=== PATIENT | female | born 1930 | race Caucasian/White ===

== ENCOUNTER 2019-02-20 09:53 | Observation (INO) ==
[2019-02-20] MEDS ORDERED: Isovue-370 500 ML BOTTLE IVP ONE (10:20)
--- NOTE | 2019-02-20 10:21 | Emergency Department Note ---
Disposition Clinical Impression: Hypoglycemia, Pain in pacemaker pocket Disposition: Admitted As Inpatient Condition: Good Referrals: John Powell DO [Primary Care Provider] - Forms: ED Satisfaction Letter, Work/School Release Time of Disposition: 14:27 General Adult HPI - General Chief complaint: ED General Medical Stated complaint: Concern for Infection S/P Defib Implant Time Seen by Provider: 02/20/19 10:05 Source: patient Limitations: no limitations Nursing Notes Reviewed: Yes Vital Signs Reviewed: Yes - History of Present Illness HPI Narrative: A social female was us emergency department with concern for swelling, and warmth over her pacemaker defibrillator incision site. Patient states that she had a defibrillator and pacemaker placement one week ago by Dr. Yin. States that she was seen by a nurse at his office and sent to the emergency department. Patient denies any fevers, but reports that the swelling of the area has been increasing over the last couple days. States that it has been want to fill, no drainage has been from the area. Patient states that she has been keeping the area dry and has been following all of her instructions otherwise. Pain Scale: 5 - Related Data Home Medications Medication Instructions Recorded Confirmed Aspirin [Lo-Dose Aspirin EC] 81 mg PO DAILY 02/10/19 02/10/19 Carvedilol [Coreg] 6.25 mg PO BIDWM 02/10/19 02/10/19 Clopidogrel [Plavix] 75 mg PO DAILY 02/10/19 02/10/19 Digoxin [Lanoxin] 0.125 mg PO DAILY 02/10/19 02/10/19 Furosemide [Lasix] 0.5 tab PO DAILY 02/10/19 02/10/19 Gabapentin [Neurontin] 400 mg PO BID 02/10/19 02/10/19 Insulin Lispro Protamin/Lispro 45 unit SQ QPM 02/10/19 02/10/19 [Humalog Mix 75-25 Kwikpen] Insulin Lispro Protamin/Lispro 55 unit SQ QAM 02/10/19 02/10/19 [Humalog Mix 75-25 Kwikpen] Isosorbide MONOnitrate (24 HR) 30 mg PO DAILY 02/10/19 02/10/19 [Imdur] Levothyroxine Sodium [Euthyrox] 100 mcg PO DAILY 02/10/19 02/10/19 Lisinopril [Zestril] 0.5 tab PO DAILY 02/10/19 02/10/19 [place]-3/Dha/Epa/Fish Oil [Fish Oil 1 each PO BID 02/10/19 02/10/19 1,000 mg Softgel] Rosuvastatin Calcium [Crestor] 10 mg PO DAILY 02/10/19 02/10/19 amLODIPine [Norvasc] 5 mg PO DAILY 02/10/19 02/10/19 Allergies Allergy/AdvReac Type Severity Reaction Status Date / Time atorvastatin [From Lipitor] Allergy Swelling Verified 02/20/19 10:03 of Lip/Tongue/Throat Sulfa (Sulfonamide Allergy Hives Verified 02/10/19 13:09 Antibiotics) All systems ED: reviewed and negative except as stated. Review of Systems: As Per HPI Constitutional: Denies: fever Cardiovascular: Denies: chest pain Respiratory: Denies: cough, dyspnea Gastrointestinal: Denies: nausea Integumentary: Reports: other (Swelling of skin) Past Medical History - Past Medical History Attestation: Yes The following information was validated with the patient. Medical history: Reports: cancer, coronary artery disease, diabetes, GERD, hyperlipidemia, hypertension, myocardial infarction, peripheral artery disease Surgical history: Reports: angioplasty/stent, carotid endarterectomy, cholecystectomy, pacemaker/AICD, AICD Psychiatric history: Reports: no psych history - Social History Smoking Status: Former smoker Smokeless Tobacco Status: No Alcohol use: Reports: none Drug use: Reports: none Physical Exam - General Limitations: no limitations General appearance: alert, in no apparent distress - Head Head exam: normocephalic - Eye Eye exam: Present: EOMI - ENT ENT exam: mucous membranes moist - Neck Neck exam: Present: trachea midline - Chest Chest inspection: Present: symmetric chest wall rise, other (Patient has a clean incision site where his regular for replaced. There is some mild swelling around the site, no areas of fluctuation, no drainage from incision, no erythema, Steri-Strips intact) - Respiratory Respiratory exam: Present: normal lung sounds bilaterally. Absent: respiratory distress, accessory muscle use - Cardiovascular Cardiovascular exam: Present: regular rate, normal rhythm, normal heart sounds - Abdominal Exam Abdominal exam: Present: soft, Non-Tender. Absent: distention, guarding, rehana ound - Extremities Exam Extremities exam: Present: normal capillary refill - Back Exam Back exam: Present: full ROM - Neurological Exam Neurological exam: Present: alert, oriented X3 - Psychiatric Psychiatric exam: Present: normal affect, normal mood - Skin Skin exam: Present: warm, dry, intact, normal color Course Vital Signs Temperature 97.9 F 02/20/19 09:56 Pulse Rate 60 02/20/19 09:56 Respiratory Rate 18 02/20/19 09:56 Blood Pressure 138/51 02/20/19 09:56 O2 Sat by Pulse Oximetry 97 02/20/19 09:56 Temperature 97.9 F 02/20/19 09:56 Pulse Rate 59 02/20/19 11:55 Respiratory Rate 18 02/20/19 11:55 Blood Pressure 164/51 02/20/19 11:55 O2 Sat by Pulse Oximetry 95 02/20/19 11:55 Oxygen Delivery Oxygen Delivery Room Air Medical Decision Making - MDM Narrative Medical decision making narrative: Initial female presents emergency department with concern for swelling of where her pacemaker was placed. On physical exam, there is some mild swelling around the site, no drainage, clean incision site. CT skin of the chest in that area reveals small amount of fluid and bubbles of gas along the superior margin of the generator. No signs of abscess, no overt evidence of infection. Blood cultures were obtained. I spoke with candle wicker Dr. Savage who came to see the patient bedside. Requested she get admitted. Said to not start antibiotics at this time. Said to monitor while blood cell count patient clinically. Patient does have increased leukocytosis from previous, however, patient also had previous surgery which could have caused stress emargination. With patient being afebrile now, no evidence of any cellulitis at this time, agree with withholding antibiotics at this time. Patient admitted to Dr. Baltazar. Patient did have mild hypoglycemia with a glucose of 60. She was given oral hydration and started on a diet. Patient asymptomatic with it. Chest CT 02/20/19 10:20 IMPRESSION: 1. Small amount of fluid and bubbles of gas along the superior margin of the pulse generator of an AICD could be postoperative. The the possibility of infection should be correlated clinically. There is no discrete fluid collection suggestive of an abscess 2. No acute intrathoracic abnormality D/ / oJhn Kennedy MD / John Kennedy MD Interpreting Provider: John Kennedy MD - Lab Data Result diagrams: 02/20/19 10:36 02/20/19 10:36 Lab Results 02/20/19 02/20/19 02/20/19 Range/Units 10:36 10:36 10:36 WBC 11.4 H (4.3-11.1) K/mcL RBC 4.43 (3.82-4.97) M/mcL Hgb 12.6 (11.5-15.4) g/dL Hct 40.3 (35.3-44.9) % MCV 91.0 (83.0-100.0) fL MCH 28.4 (28.0-33.3) pg MCHC 31.3 L (31.6-35.5) g/dL RDW 14.6 H (11.5-14.5) % Plt Count 243 (140-400) K/mcL MPV 10.7 (9.4-12.4) fL Immature Gran % 0.4 (0-4) % Seg Neutrophils % 64.4 % Lymphocytes % 25.9 % Monocytes % 8.4 % Eosinophils % 0.5 % Basophils % 0.4 % Neutrophils # 7.3 (1.6-8.9) K/mcL Lymphocytes # 3.0 (0.6-4.6) K/mcL Monocytes # 1.0 (0.0-1.3) K/mcL Eosinophils # 0.1 (0.0-0.6) K/mcL Basophils # 0.0 (0.0-0.2) K/mcL Sodium 144 (136-145) mEq/L Potassium 4.5 (3.5-5.1) mEq/L Chloride 106 (98-107) mEq/L Carbon Dioxide 29 (23-29) mEq/L BUN 34 H (8-23) mg/dL Creatinine 1.43 H (0.60-1.20) mg/dL Est GFR ( Amer) 42 L (> 60) Est GFR (Non-Af Amer) 35 L (> 60) BUN/Creatinine Ratio 24 (6-26) Glucose 60 L (70-105) mg/dL POC Glucose (70-99) mg/dL Calculated Osmolality 303 H (280-300) Lactic Acid 1.2 (0.5-2.2) mmol/L Calcium 9.9 (8.6-10.3) mg/dL 02/20/19 Range/Units 12:14 WBC (4.3-11.1) K/mcL RBC (3.82-4.97) M/mcL Hgb (11.5-15.4) g/dL Hct (35.3-44.9) % MCV (83.0-100.0) fL MCH (28.0-33.3) pg MCHC (31.6-35.5) g/dL RDW (11.5-14.5) % Plt Count (140-400) K/mcL MPV (9.4-12.4) fL Immature Gran % (0-4) % Seg Neutrophils % % Lymphocytes % % Monocytes % % Eosinophils % % Basophils % % Neutrophils # (1.6-8.9) K/mcL Lymphocytes # (0.6-4.6) K/mcL Monocytes # (0.0-1.3) K/mcL Eosinophils # (0.0-0.6) K/mcL Basophils # (0.0-0.2) K/mcL Sodium (136-145) mEq/L Potassium (3.5-5.1) mEq/L Chloride (98-107) mEq/L Carbon Dioxide (23-29) mEq/L BUN (8-23) mg/dL Creatinine (0.60-1.20) mg/dL Est GFR ( Amer) (> 60) Est GFR (Non-Af Amer) (> 60) BUN/Creatinine Ratio (6-26) Glucose (70-105) mg/dL POC Glucose 188 H (70-99) mg/dL Calculated Osmolality (280-300) Lactic Acid (0.5-2.2) mmol/L Calcium (8.6-10.3) mg/dL
[2019-02-20 10:55] LABS: Basophils % 0.4 %; Eosinophils # 0.1 K/mcL (0.0-0.6); Eosinophils % 0.5 %; Hematocrit 40.3 % (35.3-44.9); Hemoglobin 12.6 g/dL (11.5-15.4); Immature Granulocytes % 0.4 % (0-4); Lymphocytes % 25.9 %; Mean Corpuscular HGB Conc 31.3 g/dL (31.6-35.5); Mean Corpuscular Hemoglobin 28.4 pg (28.0-33.3); Mean Platelet Volume 10.7 fL (9.4-12.4); Monocytes % 8.4 %; Neutrophils # 7.3 K/mcL (1.6-8.9); Platelet Count 243 K/mcL (140-400); Red Blood Count 4.43 M/mcL (3.82-4.97); Red Cell Distribution Width 14.6 % (11.5-14.5); Segmented Neutrophils % 64.4 %; White Blood Count 11.4 K/mcL (4.3-11.1)
[2019-02-20 11:02] LABS: Calcium 9.9 mg/dL (8.6-10.3); Potassium 4.5 mEq/L (3.5-5.1)
[2019-02-20] MEDS ORDERED: *HR* Dextrose 50 % in Water (Vial) 50 ML VIAL IVP ONE (11:21)
--- NOTE | 2019-02-20 14:12 | Emergency Department Note ---
Disposition Clinical Impression: Hypoglycemia, Pain in pacemaker pocket Disposition: Admitted As Inpatient Condition: Good Forms: ED Satisfaction Letter, Work/School Release Time of Disposition: 14:12 General Adult HPI - General Chief complaint: ED General Medical Stated complaint: Concern for Infection S/P Defib Implant Time Seen by Provider: 02/20/19 10:05 Source: patient Limitations: no limitations - History of Present Illness Pain Scale: 5 - Related Data Home Medications Medication Instructions Recorded Confirmed Aspirin [Lo-Dose Aspirin EC] 81 mg PO DAILY 02/10/19 02/20/19 Carvedilol [Coreg] 6.25 mg PO BIDWM 02/10/19 02/20/19 Clopidogrel [Plavix] 75 mg PO DAILY 02/10/19 02/20/19 Digoxin [Lanoxin] 0.125 mg PO DAILY 02/10/19 02/20/19 Furosemide [Lasix] 0.5 tab PO DAILY 02/10/19 02/20/19 Gabapentin [Neurontin] 400 mg PO BID 02/10/19 02/20/19 Insulin Lispro Protamin/Lispro 45 unit SQ QPM 02/10/19 02/20/19 [Humalog Mix 75-25 Kwikpen] Insulin Lispro Protamin/Lispro 55 unit SQ QAM 02/10/19 02/20/19 [Humalog Mix 75-25 Kwikpen] Isosorbide MONOnitrate (24 HR) 30 mg PO DAILY 02/10/19 02/20/19 [Imdur] Levothyroxine Sodium [Euthyrox] 100 mcg PO DAILY 02/10/19 02/20/19 Lisinopril [Zestril] 0.5 tab PO DAILY 02/10/19 02/20/19 [place]-3/Dha/Epa/Fish Oil [Fish Oil 1 each PO BID 02/10/19 02/20/19 1,000 mg Softgel] Rosuvastatin Calcium [Crestor] 10 mg PO DAILY 02/10/19 02/20/19 amLODIPine [Norvasc] 5 mg PO DAILY 02/10/19 02/20/19 Allergies Allergy/AdvReac Type Severity Reaction Status Date / Time atorvastatin [From Lipitor] Allergy Swelling Verified 02/20/19 10:03 of Lip/Tongue/Throat Sulfa (Sulfonamide Allergy Hives Verified 02/10/19 13:09 Antibiotics) Past Medical History - Past Medical History Medical history: Reports: cancer, coronary artery disease, diabetes, GERD, hyperlipidemia, hypertension, myocardial infarction, peripheral artery disease Surgical history: Reports: angioplasty/stent, carotid endarterectomy, cholecystectomy, pacemaker/AICD, AICD Psychiatric history: Reports: no psych history - Social History Smoking Status: Former smoker Smokeless Tobacco Status: No Alcohol use: Reports: none Drug use: Reports: none Physical Exam - General Limitations: no limitations General appearance: alert, in no apparent distress Course Vital Signs Temperature 97.9 F 02/20/19 09:56 Pulse Rate 60 02/20/19 09:56 Respiratory Rate 18 02/20/19 09:56 Blood Pressure 138/51 02/20/19 09:56 O2 Sat by Pulse Oximetry 97 02/20/19 09:56 Temperature 97.9 F 02/20/19 09:56 Pulse Rate 59 02/20/19 11:55 Respiratory Rate 18 02/20/19 11:55 Blood Pressure 164/51 02/20/19 11:55 O2 Sat by Pulse Oximetry 95 02/20/19 11:55 Oxygen Delivery Oxygen Delivery Room Air Medical Decision Making - Lab Data Result diagrams: 02/20/19 10:36 02/20/19 10:36 Lab Results 02/20/19 02/20/19 02/20/19 Range/Units 10:36 10:36 10:36 WBC 11.4 H (4.3-11.1) K/mcL RBC 4.43 (3.82-4.97) M/mcL Hgb 12.6 (11.5-15.4) g/dL Hct 40.3 (35.3-44.9) % MCV 91.0 (83.0-100.0) fL MCH 28.4 (28.0-33.3) pg MCHC 31.3 L (31.6-35.5) g/dL RDW 14.6 H (11.5-14.5) % Plt Count 243 (140-400) K/mcL MPV 10.7 (9.4-12.4) fL Immature Gran % 0.4 (0-4) % Seg Neutrophils % 64.4 % Lymphocytes % 25.9 % Monocytes % 8.4 % Eosinophils % 0.5 % Basophils % 0.4 % Neutrophils # 7.3 (1.6-8.9) K/mcL Lymphocytes # 3.0 (0.6-4.6) K/mcL Monocytes # 1.0 (0.0-1.3) K/mcL Eosinophils # 0.1 (0.0-0.6) K/mcL Basophils # 0.0 (0.0-0.2) K/mcL Sodium 144 (136-145) mEq/L Potassium 4.5 (3.5-5.1) mEq/L Chloride 106 (98-107) mEq/L Carbon Dioxide 29 (23-29) mEq/L BUN 34 H (8-23) mg/dL Creatinine 1.43 H (0.60-1.20) mg/dL Est GFR ( Amer) 42 L (> 60) Est GFR (Non-Af Amer) 35 L (> 60) BUN/Creatinine Ratio 24 (6-26) Glucose 60 L (70-105) mg/dL POC Glucose (70-99) mg/dL Calculated Osmolality 303 H (280-300) Lactic Acid 1.2 (0.5-2.2) mmol/L Calcium 9.9 (8.6-10.3) mg/dL 02/20/19 Range/Units 12:14 WBC (4.3-11.1) K/mcL RBC (3.82-4.97) M/mcL Hgb (11.5-15.4) g/dL Hct (35.3-44.9) % MCV (83.0-100.0) fL MCH (28.0-33.3) pg MCHC (31.6-35.5) g/dL RDW (11.5-14.5) % Plt Count (140-400) K/mcL MPV (9.4-12.4) fL Immature Gran % (0-4) % Seg Neutrophils % % Lymphocytes % % Monocytes % % Eosinophils % % Basophils % % Neutrophils # (1.6-8.9) K/mcL Lymphocytes # (0.6-4.6) K/mcL Monocytes # (0.0-1.3) K/mcL Eosinophils # (0.0-0.6) K/mcL Basophils # (0.0-0.2) K/mcL Sodium (136-145) mEq/L Potassium (3.5-5.1) mEq/L Chloride (98-107) mEq/L Carbon Dioxide (23-29) mEq/L BUN (8-23) mg/dL Creatinine (0.60-1.20) mg/dL Est GFR ( Amer) (> 60) Est GFR (Non-Af Amer) (> 60) BUN/Creatinine Ratio (6-26) Glucose (70-105) mg/dL POC Glucose 188 H (70-99) mg/dL Calculated Osmolality (280-300) Lactic Acid (0.5-2.2) mmol/L Calcium (8.6-10.3) mg/dL Attestation Statement - Attestation Attestation: I reviewed the residents documentation and agree with the residents assessment and plan of care. I have personally had face to face time with the patient. (Brief History, Brief Exam, and MDM) I personally supervised and was present for the pereira/critical portions of the following procedures completed by the resident: (add procedures performed here). 88 year old female presents to the ED with complaints of pain over the pacemaker and weakness. It appers that she is hypoglycemic and pacemaker was placed by Dr. Yin about [address] scan shows post-operative gas vs cellultis and she otherwise has an elevaed WBC from 7 to 11. Cards does not require ABX at this time and think that this is likely post-opertaive inflammation. Sherry will have blood culcutres pulled and reccomend admissin to medicine for obs.
[2019-02-20] MEDS ORDERED: Acetaminophen 325 MG TABLET PO PRN (14:41)
[2019-02-20] MEDS ORDERED: Naloxone 0.4 MG/ML INJ IVP PRN (14:41)
[2019-02-20] MEDS ORDERED: Ondansetron 4 MG/2 ML VIAL IVP PRN (14:41)
[2019-02-20] MEDS ORDERED: Dextrose Gel 15 GM/37.5 ML TUBE PO PRN ×2 (14:51)
[2019-02-20] MEDS ORDERED: D5% in Water 1,000 ML IVC PRN (14:51)
[2019-02-20] MEDS ORDERED: *HR* Dextrose 50 % in Water (Syg) 50 ML SYRINGE IVP PRN (14:51)
--- NOTE | 2019-02-20 14:51 | Internal Med History&Physical ---
Date of Encounter: 02/20/19 Time of Encounter: 14:47 Internal Medicine - H&P: HPI Chief complaint: pacemaker pain Admitted From: Emergency Dept Plans for Post Hospital Care: Home History of present illness: Ms. 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 She presented to the ED was noted to be hypoglycemic with glucose in the 60s. Patient states that her blood sugars have been dropping she has not been taking her basal insulin because of hypoglycemia. She also has been experiencing left leg pain which she states occurs on ambulation and at times is just constant describing as an ache she does have peripheral vascular disease. She was seen by cardiology in the ER he recommends no antibiotics at this time blood cultures have been drawn lab work with with slight elevation in white count. She does have history CK D appears to be around baseline. Patient has been admitted for further work up and evaluation. Discussed with Dr. Savage who did see patient in the ER no antibiotics at this time. Discussed treatment plan with the patient who verbalized understanding. Past Med Surg Social Fam HX - Past Medical History Medical history: cancer, coronary artery disease, diabetes, GERD, hyperlipidemia, hypertension, myocardial infarction, peripheral artery disease Psychiatric history: no psych history - Past Surgical History Surgical History: angioplasty/stent, carotid endarterectomy, cholecystectomy, pacemaker/AICD, AICD - Social History Smoking Status: Former smoker Smokeless Tobacco Status: No Alcohol use: none Drug use: none - Family History Mother Living Status: Cause of : Cancer Father Living Status: Cause of : Cancer Internal Medicine - H&P: Meds Aspirin [Lo-Dose Aspirin EC] 81 mg PO DAILY 02/10/19 [History] Carvedilol [Coreg] 6.25 mg PO BIDWM 02/10/19 [History] Clopidogrel [Plavix] 75 mg PO DAILY 02/10/19 [History] Digoxin [Lanoxin] 0.125 mg PO DAILY 02/10/19 [History] Furosemide [Lasix] 0.5 tab PO DAILY 02/10/19 [History] Gabapentin [Neurontin] 400 mg PO BID 02/10/19 [History] Insulin Lispro Protamin/Lispro [Humalog Mix 75-25 Kwikpen] 45 unit SQ QPM 02/10/19 [History] Insulin Lispro Protamin/Lispro [Humalog Mix 75-25 Kwikpen] 55 unit SQ QAM 02/10/19 [History] Isosorbide MONOnitrate (24 HR) [Imdur] 30 mg PO DAILY 02/10/19 [History] Levothyroxine Sodium [Euthyrox] 100 mcg PO DAILY 02/10/19 [History] Lisinopril [Zestril] 0.5 tab PO DAILY 02/10/19 [History] [place]-3/Dha/Epa/Fish Oil [Fish Oil 1,000 mg Softgel] 1 each PO BID 02/10/19 [History] Rosuvastatin Calcium [Crestor] 10 mg PO DAILY 02/10/19 [History] amLODIPine [Norvasc] 5 mg PO DAILY 02/10/19 [History] Allergy/AdvReac Type Severity Reaction Status Date / Time atorvastatin [From Lipitor] Allergy Swelling Verified 02/20/19 10:03 of Lip/Tongue/Throat Sulfa (Sulfonamide Allergy Hives Verified 02/10/19 13:09 Antibiotics) All Systems PM: A 10-system review of systems was performed and is negative for pertinent findings except as documented above in the HPI. - Constitutional Vitals: Temp Pulse Resp BP Pulse Ox 97.9 F 60 18 174/56 98 02/20/19 09:56 02/20/19 14:24 02/20/19 14:24 02/20/19 14:24 02/20/19 14:24 Exam: Skin: Free of rash and discoloration. Eyes: Sclera is white. There is no discharge from eyes. ENMT: Oral/pharyngeal mucosa is normal in appearance. There is no discharge from nose or ears. Respiratory: Normal breath sounds with no crackles and wheezes bilaterally. CV: Heart is regular with no gallop or murmur.-Left chest where pacemaker swollen tender to touch no drainage no redness warm to touch GI: Abdomen is flat and soft with no palpable mass or visceromegaly. : There is no tenderness in patient's flanks bilaterally. Neuro exam: He has good strength in upper and lower extremities. He has normal eye movements. Psychiatric: He has normal affect. His thought process is appropriate to the situation. Internal Med - H&P Results - Labs CBC & Chem 7: 02/20/19 10:36 02/20/19 10:36 Labs: Short CBC 02/20/19 Range/Units 10:36 WBC 11.4 H (4.3-11.1) K/mcL Hgb 12.6 (11.5-15.4) g/dL Hct 40.3 (35.3-44.9) % Plt Count 243 (140-400) K/mcL Neutrophils # 7.3 (1.6-8.9) K/mcL BMP 02/20/19 10:36 Sodium 144 Potassium 4.5 Chloride 106 Carbon Dioxide 29 BUN 34 H Creatinine 1.43 H Glucose 60 L Calcium 9.9 - Impressions ITS Impressions Chest CT 02/20/19 10:20 IMPRESSION: 1. Small amount of fluid and bubbles of gas along the superior margin of the pulse generator of an AICD could be postoperative. The the possibility of infection should be correlated clinically. There is no discrete fluid collection suggestive of an abscess 2. No acute intrathoracic abnormality D/ / John Kennedy MD / John Kennedy MD Interpreting Provider: John Kennedy MD - Assessment and Plan (1) Pain in pacemaker pocket Current Visit: Yes Status: Acute Assessment and plan: Patient had pacemaker placed and 02/10/2019 she has been experiencing pain and swelling to the site tender to touch no fevers no chills no white count Blood cultures have been drawn Cardiology has been consulted-no antibiotics at this time per cardiology's recommendation (2) CAD (coronary artery disease) Current Visit: Yes Status: Acute Assessment and plan: History of CADsp VA 3 PCI-continue with aspirin Plavix I survive lisinopril and carvedilol-no chest pain at this time Continuous cardiac monitoring Qualifiers: Coronary Disease-Associated Artery/Lesion type: [place] artery [place] vs. transplanted heart: [place] heart Associated angina: without angina Qualified Code(s): I25.10 - Atherosclerotic heart disease of [place] coronary artery without angina pectoris (3) HTN (hypertension) Current Visit: Yes Status: Acute Assessment and plan: Continue with home medications- Qualifiers: Hypertension type: essential hypertension Qualified Code(s): I10 - Essential (primary) hypertension (4) Diabetes Current Visit: Yes Status: Acute Assessment and plan: Accu-Cheks before meals at bedtime with sliding scale insulin. Patient did have episode of hypoglycemia we will hold basal for now monitor and resume check A1c Qualifiers: Diabetes mellitus type: type 2 Diabetes mellitus director of the biophysics facility insulin use: with director of the biophysics facility use Diabetes mellitus complication status: with kidney complications Diabetes mellitus complication detail: with chronic kidney disease Chronic kidney disease stage: stage 3 (moderate) Qualified Code(s): E11.22 - Type 2 diabetes mellitus with diabetic chronic kidney disease; N18.3 - Chronic kidney disease, stage 3 (moderate); Z79.4 - clinical orthoptist (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 (5) Hypoglycemia Current Visit: Yes Status: Acute Assessment and plan: Patient did have episode of hypoglycemia in the emergency room. Patient was given oral dextrose and a tray to eat and glucose improved. She has been exp eriencing episodes of hypoglycemia home has not been taking her basal insulin Continue with Accu-Cheks before meals at bedtime with sliding-scale insulin reevaluate upon discharge (6) PVD (peripheral vascular disease) Current Visit: Yes Status: Acute Assessment and plan: History PVD-Quain patient she has stents placed in her right renal artery around 2010. She has been experiencing increasing pain the past few weeks 2. she buys it difficult to walk due to the pain she states pain is constant throbbing from her groin down to her knee Pulses are present bilaterally extremities pink and warm-discussed with vascular who will see patient Arterial studies Impressions: 1) Right lower extremity waveform demonstrates mildly diminished hemodynamics. 2) Right Ankle Brachial Index demonstrates moderately occlusive disease. 1) Left lower extremity waveform demonstrates moderately diminished hemodynamics. 2) Left Ankle Brachial Index demonstrates severely occlusive disease. (7) CKD (chronic kidney disease) stage 3, GFR 30-59 ml/min Current Visit: Yes Status: Acute Assessment and plan: History CKD stage III-crabbing appears to be at baseline-currently 1.43 appears to be around 1.48 Continue to monitor creatinine avoid nephrotoxins Monitor intake and output (8) History of CHF (congestive heart failure) Current Visit: Yes Status: Acute Assessment and plan: History of diastolic heart failure we will continue with Lasix and Coreg Does not appear to be fluid overloaded - Time Spent With Patient Total time spent is greater than 50% in coordination of care (as documented) at patient's floor/unit and/or counseling patient:
[2019-02-20 16:31] LABS: Estimated Average Glucose 166 mg/dl
[2019-02-20] MEDS: Insulin LISPRO 300 UNITS/3 ML VIAL SQ SCH ×2 (17:09→20:39)
--- NOTE | 2019-02-20 18:26 | Vascular/Endovasc Consult Note ---
Date of Encounter: 02/20/19 Time of Encounter: 18:19 Assessment and Plan (1) Pain in pacemaker pocket Current Visit: Yes Status: Acute This issue is being evaluated for possible infection per cardiology. (2) CAD (coronary artery disease) Current Visit: Yes Status: Chronic Patient has chronic coronary artery disease with previous myocardial infarctions and has ischemic cardiomyopathy. The patient tells me she does not want resuscitation in the event of cardiopulmonary arrest which would then obviously make her a DNR status. Qualifiers: Coronary Disease-Associated Artery/Lesion type: [place] artery [place] vs. transplanted heart: [place] heart Associated angina: without angina Qualified Code(s): I25.10 - Atherosclerotic heart disease of [place] coronary artery without angina pectoris (3) Diabetes Current Visit: Yes Status: Chronic Patient has long-term diabetes. 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 She is status post a right lower extremity intervention and 2 left lower extremity interventions. She is status post a left carotid stent angioplasty. Due to the patient's profound cardiopulmonary restrictions interventions to improve the perfusion to the left lower extremity will not improve her walking distance. In addition the pain that she describes is not vasculogenic but appears to be neurogenic. At this point I do not recommend intervention for the left lower extremity recurrent vascular occlusive disease which would appear to be a superficial femoral and/or popliteal artery occlusion. I would recommend a conservative course of treatment. I would recommend that she be evaluated for h er left leg pain from a pain management standpoint. The patient is invited to follow up in the vascular surgery clinic if she has any further questions or concerns or if she has a change in her symptoms but it was made very clear to her and her family that any type of endovascular intervention for the left lower extremity would not increase her walking distance. The patient is not in a limb threatening status at this time. All questions were answered. - History of Present Illness Consult date: 02/20/19 Consult reason: left leg pain Chief complaint: low blood sugar History of present illness: Ms. Tom is a 88 year old female who was admitted yesterday for low blood sugar. As there was a concern as well that she may have an infection regarding her left pacemaker which was just changed for the second time approximately one week ago. As part of her review the patient noted to the admitting service that she has left leg pain. She has a history of PAD and vascular surgery was asked see the patient. The patient states that she has been having left leg pain for the past 5-6 months. She describes this as an achy and constant pain that is resident 24 hours a day 7 days a week. This pain is present from the anterior aspect of the thigh and groin area and also is present in the calf as well. This is unrelated to position or movement or ambulation. The patient is unable to walk any significant distance due to severe pulmonary disease. She states that she can o nly walk approximately 50 feet when she needs to stop because of shortness of breath. She does not describe claudication. She had had recent noninvasive testing performed a few months ago. This shows an ankle-brachial index of 0.81 on the right and 0.43 on the left. She also had a carotid duplex scan which shows a 60-79% right carotid stenosis and a 40-59% left carotid stenosis. Her past vascular history is rather complicated. This is includes a left carotid stent that was performed in [place]. She also is status post bilateral lower extremity interventions that were performed at [facility] over 10 years ago. Then about 2-3 years ago when she was residing in [place] she had a second procedure done for the left lower extremity with some type of either atherectomy or balloon angioplasty. The patient states she has a stent in her right lower extremity. I can identify no history of a left iliac stent. The patient has multiple risk factors including advanced age, hypertension, coronary artery disease, previous coronary interventions and myocardial infarctions, ischemic cardiomyopathy, congestive heart failure, chronic kidney disease, and diabetes. She also has previous spine surgery. 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 Psychiatric history: no psych history - Past Surgical History Surgical History: angioplasty/stent, carotid endarterectomy, cholecystectomy, pacemaker/AICD, AICD - Social History Smoking Status: Former smoker Smokeless Tobacco Status: No Alcohol use: none Drug use: none - Family History Mother Living Status: Cause of : Cancer Father Living Status: Cause of : Cancer Medications and Allergies Aspirin [Lo-Dose Aspirin EC] 81 mg PO DAILY 02/10/19 [History] Carvedilol [Coreg] 6.25 mg PO BIDWM 02/10/19 [History] Clopidogrel [Plavix] 75 mg PO DAILY 02/10/19 [History] Digoxin [Lanoxin] 0.125 mg PO DAILY 02/10/19 [History] Furosemide [Lasix] 0.5 tab PO DAILY 02/10/19 [History] Gabapentin [Neurontin] 400 mg PO BID 02/10/19 [History] Insulin Lispro Protamin/Lispro [Humalog Mix 75-25 Kwikpen] 45 unit SQ QPM [History] Insulin Lispro Protamin/Lispro [Humalog Mix 75-25 Kwikpen] 55 unit SQ QAM 02/10/19 [History] Isosorbide MONOnitrate (24 HR) [Imdur] 30 mg PO DAILY 02/10/19 [History] Levothyroxine Sodium [Euthyrox] 100 mcg PO DAILY 02/10/19 [History] Lisinopril [Zestril] 0.5 tab PO DAILY 02/10/19 [History] [place]-3/Dha/Epa/Fish Oil [Fish Oil 1,000 mg Softgel] 1 each PO BID 02/10/19 [History] Rosuvastatin Calcium [Crestor] 10 mg PO DAILY 02/10/19 [History] amLODIPine [Norvasc] 5 mg PO DAILY 02/10/19 [History] Allergy/AdvReac Type Severity Reaction Status Date / Time atorvastatin [From Lipitor] Allergy Swelling Verified 02/20/19 10:03 of Lip/Tongue/Throat Sulfa (Sulfonamide Allergy Hives Verified 02/10/19 13:09 Antibiotics) All Systems Review: The remainder of the systems were reviewed and are negative Exam Vital Signs, Last 4 Hours Temp Pulse Resp BP Pulse Ox 02/20/19 17:29 95 02/20/19 16:29 97.6 F 60 17 185/72 95 02/20/19 14:24 60 18 174/56 98 General: Present: Conversant, No Apparent Distress HEENT: Present: Atraumatic, Normocephaly, Trachea midline, Pupils equal Neck: Absent: JVD, Left Carotid bruit, Right Carotid bruit, Midline deformity, Tracheal deviation Cardiac: Present: Reg Rate and Rhythm, Normal S1 and S2, No Murmur Lungs: Present: Normal Breath Sounds Neuro: Present: Alert and responsive, No focal deficits noted, Cranial nerves grossly intact, Motor nerves grossly intact, Sensory nerves grossly intact Abdomen: Present: Soft, Non-tender, Other (No abdominal bruits). Absent: Masses Vascular: Present: Pulse, absent (Patient does not have a palpable left popliteal or ankle pulse as would be expected on the basis of her ankle brachial index.), Pulse, normal (Normal right lower extremity pulses. Normal left femoral pulse. No femoral bruits. No femoral masses. No popliteal masses.), Color/Temperature (Her feet are warm and pink. She has less than 2 second capillary refill bilaterally. There are no skin ulcerations. The color and temperature of the feet is symmetrical.). Absent: Cyanosis, Edema, A mputation(s) Skin: Present: No rashes noted on visualized skin Consult Discharge Plan - Plan Referrals: John Powell DO [Primary Care Provider] -
[2019-02-20] MEDS: Gabapentin 400 MG CAPSULE PO SCH (20:34)
[2019-02-20] MEDS ORDERED: Fish Oil 1,000 Mg Softgel PO SCH (21:00)
[2019-02-20] MEDS: *HR* HYDROcodone/Acet 5/325 mg TABLET PO PRN (21:16)
--- NOTE | 2019-02-20 23:35 | Cardiology Consult Note ---
Date of Encounter: 02/20/19 Time of Encounter: 14:00 Assessment and Plan (1) Pain in pacemaker pocket Current Visit: Yes Status: Acute Pain on the redness at generator site may be a postoperative sequela. However ,her white count is slightly elevated from baseline. Recommend observation for fever, blood cultures, antibiotics if patient develops fever or white blood count trends up. Consider infectious disease consultation. Interrogate ICD (2) CAD (coronary artery disease) Current Visit: Yes Status: Chronic Continue aspirin, Plavix, beta wayne, statin Qualifiers: Coronary Disease-Associated Artery/Lesion type: [place] artery [place] vs. transplanted heart: [place] heart Associated angina: without angina Qualified Code(s): I25.10 - Atherosclerotic heart disease of [place] coronary artery without angina pectoris (3) PVD (peripheral vascular disease) Current Visit: Yes Status: Chronic Discussion w patient/family: The assessment and plan as outlined above was discussed with the patient and/or family members who expressed understanding and agreement. All questions were answered. Thank you for involving us in the care of your patient. Please call with any questions. History of Present Illness Consult date: 02/20/19 History of present illness: Ms. Tom is a 88 year old female 88 year old female with history of ischemic cardiomyopathy, chronic systolic CHF, VT s/p ICD with recent generator change a week ago. She was sent from cardiology office where she had gone for wound check, after presenting with pain and swelling over generator site. She denies fever or chills. Recent echo 2 weeks ago showed preserved EF. 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 Psychiatric history: no psych history - Past Surgical History Surgical History: angioplasty/stent, carotid endarterectomy, cholecystectomy, pacemaker/AICD, AICD - Social History Smoking Status: Former smoker Smokeless Tobacco Status: No Alcohol use: none Drug use: none - Family History Mother Living Status: Cause of : Cancer Father Living Status: Cause of : Cancer Medications and Allergies RX: Aspirin [Lo-Dose Aspirin EC] 81 mg PO DAILY 02/10/19 [History] RX: Carvedilol [Coreg] 6.25 mg PO BIDWM 02/10/19 [History] RX: Clopidogrel [Plavix] 75 mg PO DAILY 02/10/19 [History] RX: Digoxin [Lanoxin] 0.125 mg PO DAILY 02/10/19 [History] RX: Furosemide [Lasix] 0.5 tab PO DAILY 02/10/19 [History] RX: Gabapentin [Neurontin] 400 mg PO BID 02/10/19 [History] RX: Insulin Lispro Protamin/Lispro [Humalog Mix 75-25 Kwikpen] 45 unit SQ QPM 02/10/19 [History] RX: Insulin Lispro Protamin/Lispro [Humalog Mix 75-25 Kwikpen] 55 unit SQ QAM 02/10/19 [History] RX: Isosorbide MONOnitrate (24 HR) [Imdur] 30 mg PO DAILY 02/10/19 [History] RX: Levothyroxine Sodium [Euthyrox] 100 mcg PO DAILY 02/10/19 [History] RX: Lisinopril [Zestril] 0.5 tab PO DAILY 02/10/19 [History] RX: [place]-3/Dha/Epa/Fish Oil [Fish Oil 1,000 mg Softgel] 1 each PO BID 02/10/19 [History] RX: Rosuvastatin Calcium [Crestor] 10 mg PO DAILY 02/10/19 [History] RX: amLODIPine [Norvasc] 5 mg PO DAILY 02/10/19 [History] Allergy/AdvReac Type Severity Reaction Status Date / Time atorvastatin [From Lipitor] Allergy Swelling Verified 02/20/19 10:03 of Lip/Tongue/Throat Sulfa (Sulfonamide Allergy Hives Verified 02/10/19 13:09 Antibiotics) All Systems Review: The remainder of the systems were reviewed and are negative - Constitutional Constitutional: no fever(s), no malaise - Cardiovascular Cardiovascular: no chest pain at rest, no dyspnea at rest, no irregular heart rhythm, no orthopnea, no palpitations - Respiratory Respiratory: no cough - Gastrointestinal Gastrointestinal: no abdominal pain - Genitourinary Genitourinary: no dysuria - Integumentary Integumentary: no unusual bruising - Neurological Neurological: no abnormal speech - Hematological/Lymphatic Hematologic/Lymphatic: no easy bleeding Physical Examination Vital Signs, Last 4 Hours Pulse Ox 02/20/19 20:42 96 General: Conversant HEENT: Atraumatic Neck: No JVD Cardiac: Reg Rate and Rhythm, Normal S1 and S2, Other Lungs: Normal Breath Sounds, No Wheeze, Rales, Rhonchi Neuro: Alert and responsive Abdomen: Soft Skin: No rashes noted on visualized skin Musculoskeletal: Other (Wound site on left upper chest wall appears well apposed, minimal swelling and redness with tenderness) Extremities: No Edema, Normal Pulses Results 02/20/19 10:36 02/20/19 10:36 Lab Results 02/20/19 02/20/19 10:36 10:36 WBC 11.4 H Hgb 12.6 Hct 40.3 Plt Count 243 Sodium 144 Potassium 4.5 Chloride 106 Carbon Dioxide 29 BUN 34 H Creatinine 1.43 H Glucose 60 L Calcium 9.9 - EKG Interpretation EKG results cardiology: ventricular paced rhythm Consult Discharge Plan - Plan Referrals: John Powell DO [Primary Care Provider] -
[2019-02-21] MEDS: Insulin LISPRO 300 UNITS/3 ML VIAL SQ SCH ×4 (07:32→20:42)
[2019-02-21 07:38] LABS: Calcium 9.2 mg/dL (8.6-10.3); Potassium 4.5 mEq/L (3.5-5.1)
[2019-02-21 07:40] LABS: Basophils % 0.4 %; Eosinophils # 0.2 K/mcL (0.0-0.6); Hematocrit 40.3 % (35.3-44.9); Hemoglobin 12.7 g/dL (11.5-15.4); Immature Granulocytes % 0.3 % (0-4); Lymphocytes # 3.6 K/mcL (0.6-4.6); Lymphocytes % 37.8 %; Mean Corpuscular HGB Conc 31.5 g/dL (31.6-35.5); Mean Corpuscular Hemoglobin 28.5 pg (28.0-33.3); Mean Corpuscular Volume 90.4 fL (83.0-100.0); Mean Platelet Volume 10.7 fL (9.4-12.4); Monocytes # 0.8 K/mcL (0.0-1.3); Monocytes % 8.6 %; Neutrophils # 4.9 K/mcL (1.6-8.9); Platelet Count 225 K/mcL (140-400); Red Blood Count 4.46 M/mcL (3.82-4.97); Segmented Neutrophils % 50.9 %; White Blood Count 9.6 K/mcL (4.3-11.1)
[2019-02-21] MEDS: amLODIPine 5 MG TABLET PO SCH (08:17)
[2019-02-21] MEDS: Gabapentin 400 MG CAPSULE PO SCH ×2 (08:17→20:41)
[2019-02-21] MEDS: Isosorbide MONOnitrate (24 HR) 30 MG TAB.ER.24H PO SCH (08:18)
[2019-02-21] MEDS: Aspirin Enteric Coated 81 MG Tablet PO SCH (08:18)
[2019-02-21] MEDS: Furosemide 40 MG TABLET PO SCH (08:18)
[2019-02-21] MEDS: *HR* Digoxin 0.125 MG TABLET PO SCH (08:18)
--- NOTE | 2019-02-21 09:09 | Cardiology Progress Note ---
Date of Encounter: 02/21/19 Time of Encounter: 09:10 Assessment and Plan (1) Pain in pacemaker pocket Current Visit: Yes Status: Acute Per Cardiology: Appears somewhat improved. WBC improved. Afebrile. Per gabby Williamson to consult ID to evaluate if antibiotics warranted. ICD check ok. Cardiology signing off, re-consult PRN, f/u arranged. Discussion w patient/family: The assessment and plan as outlined above was discussed with the patient and/or family members who expressed understanding and agreement. All questions were answered. Thank you for involving us in the care of your patient. Please call with any questions. Subjective Principal diagnosis: Tenderness to pacer site Interval history: Patient seen with family at bedside. She reports improvement in swelling to BiVICD site and tenderness. She indicates is still slightly tender to touch. Denies any pus or drainage. Denies any fever or chills. Denies any ICD shocks. Objective Vital Signs, Last 4 Hours Temp Pulse Resp BP Pulse Ox 02/21/19 07:16 98.0 F 60 19 156/54 96 General: Conversant, No Apparent Distress HEENT: Atraumatic, Normocephaly, Mucus Membranes Moist Neck: No JVD, Normal carotid pulses Cardiac: Reg Rate and Rhythm, Normal S1 and S2, No Murmur Lungs: Normal Breath Sounds, No Wheeze, Rales, Rhonchi Neuro: Alert and responsive, No focal deficits noted Abdomen: Soft, Non-Tender Skin: No rashes noted on visualized skin, Other (Left anterior chest wall incision site well approximated, Steri-Strips dry and intact, no erythema, no drainage, site with mild tenderness and swelling) Musculoskeletal: No Chest Wall Tenderness Extremities: No Clubbing, No Cyanosis, No Edema, Normal Pulses Results 02/21/19 06:52 02/21/19 06:52 Lab Results Laboratory Tests 02/20/19 02/21/19 02/21/19 10:36 06:52 06:52 WBC 11.4 H 9.6 Hgb 12.7 Hct 40.3 Creatinine 1.21 H Est GFR (Non-Af Amer) 42 L Magnesium 2.[address] 02/20/19 10:20 IMPRESSION: 1. Small amount of fluid and bubbles of gas along the superior margin of the pulse generator of an AICD could be postoperative. The the possibility of infection should be correlated clinically. There is no discrete fluid collection suggestive of an abscess 2. No acute intrathoracic abnormality D/ / John Kennedy MD / John Kennedy MD Interpreting Provider: John Kennedy MD Active Medications Acetaminophen (Tylenol) 650 mg PO Q6HR PRN PRN Reason: Mild Pain/Fever Stop: 08/22/19 14:42 Hydrocodone Bitart/Acetaminophen ([place] 5-325 Mg) 1 tab PO Q6HR PRN PRN Reason: Moderate Pain Stop: 08/22/19 14:42 Last Admin: 02/20/19 21:16 Dose: 1 tab Documented by: Amlodipine Besylate (Norvasc) 5 mg PO DAILY [facility]; Protocol Stop: 08/23/19 09:01 Last Admin: 02/21/19 08:17 Dose: 5 mg Documented by: Aspirin (Aspirin Ec) 81 mg PO DAILY [facility] Stop: 08/23/19 09:01 Last Admin: 02/21/19 08:18 Dose: 81 mg Documented by: Carvedilol (Coreg) 6.25 mg PO BIDWM [facility]; Protocol Stop: 08/22/19 17:01 Last Admin: 02/21/19 08:17 Dose: 6.25 mg Documented by: Clopidogrel Bisulfate (Plavix) 75 mg PO DAILY [facility] Stop: 08/23/19 09:01 Last Admin: 02/21/19 08:18 Dose: 75 mg Documented by: Dextrose/Water (Dextrose 50% (Syg)) 25 ml IVP AD PRN PRN Reason: Hypoglycemia Stop: 08/22/19 14:52 Digoxin (Lanoxin) 0.125 mg PO DAILY [facility] Stop: 08/23/19 09:01 Last Admin: 02/21/19 08:18 Dose: 0.125 mg Documented by: Furosemide (Lasix) 20 mg PO DAILY [facility] Stop: 08/23/19 09:01 Last Admin: 02/21/19 08:18 Dose: 20 mg Documented by: Gabapentin (Neurontin) 400 mg PO BID [facility] Stop: 08/22/19 21:01 Last Admin: 02/21/19 08:17 Dose: 400 mg Documented by: Glucagon (Glucagen) 1 mg IM ONCE PRN PRN Reason: Hypoglycemia Stop: 08/22/19 14:52 Glucose (Gluctose) 15 gm PO ONCE PRN PRN Reason: Hypoglycemia Stop: 08/22/19 14:52 Glucose (Gluctose) 30 gm PO ONCE PRN PRN Reason: Hypoglycemia Stop: 08/22/19 14:52 Dextrose (Dextrose 5%) 1,000 mls @ 100 mls/hr IVC .Q10H PRN PRN Reason: HYPOGLYCEMIA Stop: 08/22/19 14:52 Insulin Human Lispro (Humalog) 0 units SQ TIDAC [facility]; Protocol Stop: 08/22/19 16:31 Last Admin: 02/21/19 07:32 Dose: Not Given Documented by: Insulin Human Lispro (Humalog) 0 units SQ [facility]; Protocol Stop: 08/22/19 21:01 Last Admin: 02/20/19 20:39 Dose: Not Given Documented by: Isosorbide Mononitrate (Imdur) 30 mg PO DAILY [facility] Stop: 08/23/19 09:01 Last Admin: 02/21/19 08:18 Dose: 30 mg Documented by: Levothyroxine Sodium (Synthroid) 100 mcg PO DAILY@0630 [facility] Stop: 08/23/19 08:31 Last Admin: 02/21/19 08:24 Dose: Not Given Documented by: Lisinopril (Zestril) 5 mg PO DAILY [facility] Stop: 08/23/19 09:01 Last Admin: 02/21/19 08:17 Dose: 5 mg Documented by: Naloxone HCl (Narcan) 0.4 mg IVP Q2MPRN PRN PRN Reason: SEE COMMENTS Stop: 08/22/19 14:42 Ondansetron HCl (Zofran) 4 mg IVP Q8HR PRN PRN Reason: Nausea And Vomiting Stop: 08/22/19 14:42 Rosuvastatin Calcium (Crestor) 10 mg PO DAILY [facility] Stop: 08/23/19 09:01 Last Admin: 02/21/19 08:18 Dose: 10 mg Documented by: Consult Discharge Plan - Plan Referrals: John Powell DO [Primary Care Provider] -
--- NOTE | 2019-02-21 10:14 | Internal Med Progress Note ---
Hospitalist Progress Note - Encounter Date of Encounter: 02/21/19 Time of Encounter: 09:34 - Subjective Interval History: examined this morning at bedside. No acute overnight events. Patient could not sleep due to left leg pain. Complains of pain at the pacemaker placement site. Denies any difficulty breathing or abdominal pain nausea vomit ing or diarrhea. She is worried about losing her left leg and constant pain. - Exam Vitals: Temp Pulse Resp BP Pulse Ox 98.0 F 60 19 156/54 96 02/21/19 07:16 02/21/19 07:16 02/21/19 07:16 02/21/19 07:16 02/21/19 07:16 Exam: General: In no acute distress. Respiratory exam: CTAB. no accessory muscle use, rales, rhonchi, wheezes Cardiovascular exam: RRR, +S1, +S2. no murmur, gallop, rubs. Lt chest pacemaker with swelling and tenderness. GI/Abdominal exam: Non-tender, Non-distended, normal bowel sounds, soft, no peritoneal signs. Extremities exam: no pedal edema, no calf tenderness. Difficult to palpate pulse on Lt DP, PT feeble, warm feet, pulse present on Rt DP. Neurological exam: CN II-XII intact, AO X3, no focal deficits. Skin exam: No skin rash - Assessment and Plan (1) Hypoglycemia Current Visit: Yes Status: Acute (2) Pain in pacemaker pocket Current Visit: Yes Status: Acute (3) CAD (coronary artery disease) Current Visit: Yes Status: Chronic (4) HTN (hypertension) Current Visit: Yes Status: Acute (5) Diabetes Current Visit: Yes Status: Chronic (6) PVD (peripheral vascular disease) Current Visit: Yes Status: Chronic (7) CKD (chronic kidney disease) stage 3, GFR 30-59 ml/min Current Visit: Yes Status: Acute (8) History of CHF (congestive heart failure) Current Visit: Yes Status: Acute - Summary of Assessment and Plan Summary of Assessment and Plan: Assessment Acute Pain in pacemaker pocket Hypoglycemia PVD Chronic HTN DM CAD Diastolic CHF CKD3 hypothroidism Plan - s/p pacemaker placed on 02/10/2019. Without white count, but has pain and swel ling. f/u blood culture. Cardiology following. appreciate recommendation. May benefit from antbiotics. Will consult ID for their guidance. - c/w home aspirin, plavix, lisinopril, imdur and amlodipine - c/w SSI and accuchecks. A1c 7.4 . On home humalog mix. Held for now. - Conversvative management for PVD per vascular surgery. Recommendation appreciated. - stable renal function. - c/w home lasix and coreg for CHF. Internal Medicine: Result - Labs CBC & Chem 7: 02/21/19 06:52 02/21/19 06:52 Labs: Short CBC 02/20/19 02/21/19 Range/Units 10:36 06:52 WBC 11.4 H 9.6 (4.3-11.1) K/mcL Hgb 12.6 12.7 (11.5-15.4) g/dL Hct 40.3 40.3 (35.3-44.9) % Plt Count 243 225 (140-400) K/mcL Neutrophils # 7.3 4.9 (1.6-8.9) K/mcL BMP 02/20/19 02/21/19 10:36 06:52 Sodium 144 142 Potassium 4.5 4.5 Chloride 106 106 Carbon Dioxide 29 25 BUN 34 H 29 H Creatinine 1.43 H 1.21 H Glucose 60 L 135 H Calcium 9.9 9.2 - Impressions Impressions Chest CT 02/20/19 10:20 IMPRESSION: 1. Small amount of fluid and bubbles of gas along the superior margin of the pulse generator of an AICD could be postoperative. The the possibility of infection should be correlated clinically. There is no discrete fluid collection suggestive of an abscess 2. No acute intrathoracic abnormality D/ / John Kennedy MD / John Kennedy MD Interpreting Provider: John Kennedy MD Consult Discharge Plan - Plan Referrals: John Powell DO [Primary Care Provider] - (3) CAD (coronary artery disease) Qualifiers: Coronary Disease-Associated Artery/Lesion type: [place] artery [place] vs. transplanted heart: [place] heart Associated angina: without angina Qualified Code(s): I25.10 - Atherosclerotic heart disease of [place] coronary artery without angina pectoris (4) HTN (hypertension) Qualifiers: Hypertension type: essential hypertension Qualified Code(s): I10 - Essential (primary) hypertension (5) Diabetes Qualifiers: Diabetes mellitus type: type 2 Diabetes mellitus escalator constructor insulin use: with escalator constructor use Diabetes mellitus complication status: with kidney complications Diabetes mellitus complication detail: with chronic kidney disease Chronic kidney disease stage: stage 3 (moderate) Qualified Code(s): E11.22 - Type 2 diabetes mellitus with diabetic chronic kidney disease; N18.3 - Chronic kidney disease, stage 3 (moderate); Z79.4 - count team member (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
--- NOTE | 2019-02-21 14:33 | Infectious Disease Consult ---
Infectious Disease-Consult - Encounter Date/Time Date of Encounter: 02/21/19 Time of Encounter: 14:30 - Data of Consult Patient: new to practice Reason for consult: Pacemaker pocket infection Consult date: 02/21/19 Requesting Physician: Vanessa Baltazar Primary Care Provider: John Powell DO - HPI HPI: Patient is an 88-year-old woman who presented to [facility] on 02/20/2019 for pain around the pacemaker. We are consult dictated on 02/21/2019 for pacemaker pocket infection. Patient is an 88-year-old woman who has past medical history mentioned below including diabetes mellitus type 2, congestive heart failure, ventricular tachycardia status post ICD placement 02/10/[address] Yin. Patient return to the office one week post discharge for evaluation and was noted to have swelling and pain over generator site. Patient was sent to the emergency department for evaluation. Since admission, patient has been afebrile, no tachycardia and no tachypnea. Presenting labs revealed a WBC of 11.4 with normal differential 64% neutrophils, BUN 34 creatinine 1.43. Blood cultures 09/28 sets 02/20/2019 no growth to date. CT chest revealed a small amount of fluid and bubbles of gas along the superior margin of the Wade generator of an AICD could be postoperative. The possibility of infection should be correlated clinically. There is no discrete fluid collection suggestive of an abscess. No acute intrathoracic abnormality. Now patient laying in bed, appears comfortable. No complaints. AICD pocket site looks great without erythema, signs of infection, wound dehisence or drainage. - ROS Review of Systems: 10 point review of systems done, negative other for what is mentioned in history of present illness - Results CBC & Chem 7: 02/21/19 06:52 02/21/19 06:52 - Exam Vitals: Temp Pulse Resp BP Pulse Ox 97.6 F 60 19 126/64 93 02/21/19 12:15 02/21/19 12:15 02/21/19 12:15 02/21/19 12:15 02/21/19 12:15 Exam: GENERAL: Laying in bed, appears comfortable. HEAD: Normocephalic atraumatic EYES: PERRLA, EOMI, no conjunctival hemorrhage, sclera anicteric ENT: Mucous membranes moist, no oral thrush NECK: Supple. No meningeal signs. No masses LUNGS: Chest expanding symmetrically. Lungs sounds audible both lung isidro. No wheezing, no rhonchi CV: RRR, S1S2, CHEST: AICD pocket withour erythema, edema, drainage or wound dehiscEnce ABDOMEN: Soft, nontender, nondistended. Bowel sounds audible EXTREMITY: Adequate perfusion. No joint effusion. SKIN: Normal color. No rash. NEURO: Awake alert oriented 3. No obvious focal deficit PSYCH: Calm and appropriate. No agitation. Aspirin [Lo-Dose Aspirin EC] 81 mg PO DAILY 02/10/19 [History] Carvedilol [Coreg] 6.25 mg PO BIDWM 02/10/19 [History] Clopidogrel [Plavix] 75 mg PO DAILY 02/10/19 [History] Digoxin [Lanoxin] 0.125 mg PO DAILY 02/10/19 [History] Furosemide [Lasix] 20 mg PO DAILY 02/10/19 [History] Gabapentin [Neurontin] 800 mg PO BID 02/10/19 [History] Insulin Lispro Protamin/Lispro [Humalog Mix 75-25 Kwikpen] 45 unit SQ QPM 02/10/19 [History] Insulin Lispro Protamin/Lispro [Humalog Mix 75-25 Kwikpen] 55 unit SQ QAM 02/10/19 [History] Isosorbide MONOnitrate (24 HR) [Imdur] 30 mg PO DAILY 02/10/19 [History] [place]-3/Dha/Epa/Fish Oil [Fish Oil 1,000 mg Softgel] 1 each PO BID 02/10/19 [History] amLODIPine [Norvasc] 5 mg PO DAILY 02/10/19 [History] Ascorbate Calcium [Vitamin C] 500 mg PO DAILY 02/21/19 [History] Garlic 1 mg PO DAILY 02/21/19 [History] LORazepam [Ativan] 0.5 mg PO HS PRN 02/21/19 [History] Levothyroxine Sodium [Levoxyl] 75 mcg PO QAM 02/21/19 [History] Lisinopril [Zestril] 2.5 mg PO DAILY 02/21/19 [History] Multivit-Min/FA/Lycopen/Lutein [Centrum Silver Tablet] 1 tab PO DAILY 02/21/19 [History] Pantoprazole Sodium [Protonix] 40 mg PO DAILY 02/21/19 [History] Pravastatin Sodium [Pravachol] 40 mg PO DAILY 02/21/19 [History] Vitamin B Complex/Folic Acid [B-Complex Tablet] 1 tab PO DAILY 02/21/19 [History] Allergy/AdvReac Type Severity Reaction Status Date / Time atorvastatin [From Lipitor] Allergy Swelling Verified 02/20/19 10:03 of Lip/Tongue/Throat Sulfa (Sulfonamide Allergy Hives Verified 02/10/19 13:09 Antibiotics) - Assessment and Plan (1) Pain in pacemaker pocket Current Visit: Yes Status: Acute Status post ICD placement 02/10/[address] chest 02/20/2019: Small amount of fluid and bubbles of gas along the superior margin of the pulse generator of an AICD could be postoperative. The the possibility of infection should be correlated clinically. There is no discrete fluid collection suggestive of an abscess 1 SIRS criteria on admission. d/w cardiology service who have seen patient since admission and they dont feel that site was infected Today on my evaluation the site looks good and no signs of infection. Keep in mind that patient has not received any antibiotics since admission. I believe no antibiotics are warranted at this time since no signs of infection. We will sign off, please let us know if anything changes clinically and we will be happy to reevaluate. SNOMED Code(s): 500905096, 164279082 (2) Allergy to antibiotic Current Visit: Yes Status: Acute SNOMED Code(s): 749193974314369 (3) CAD (coronary artery disease) Current Visit: Yes Status: Chronic Qualifiers: Coronary Disease-Associated Artery/Lesion type: [place] artery [place] vs. transplanted heart: [place] heart Associated angina: without angina Qualified Code(s): I25.10 - Atherosclerotic heart disease of [place] coronary artery without angina pectoris SNOMED Code(s): 40132028 (4) PAD (peripheral artery disease) Current Visit: Yes Status: Acute SNOMED Code(s): 570322070, 363957726 (5) Diabetes Current Visit: Yes Status: Chronic Qualifiers: Diabetes mellitus type: type 2 Diabetes mellitus termite inspector insulin use: with mcc use Diabetes mellitus complication status: with kidney complications Diabetes mellitus complication detail: with chronic kidney disease Chronic kidney disease stage: stage 3 (moderate) Qualified Code(s): E11.22 - Type 2 diabetes mellitus with diabetic chronic kidney disease; N18.3 - Chronic kidney disease, stage 3 (moderate); Z79.4 - termite inspector (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 SNOMED Code(s): 20253117 (6) CKD (chronic kidney disease) stage 3, GFR 30-59 ml/min Current Visit: Yes Status: Acute SNOMED Code(s): 403115350 (7) History of CHF (congestive heart failure) Current Visit: Yes Status: Acute SNOMED Code(s): 270031904 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
[2019-02-22] MEDS: *HR* HYDROcodone/Acet 5/325 mg TABLET PO PRN (10:32)
[2019-02-22] MEDS: Isosorbide MONOnitrate (24 HR) 30 MG TAB.ER.24H PO SCH (10:33)
[2019-02-22] MEDS: amLODIPine 5 MG TABLET PO SCH (10:33)
[2019-02-22] MEDS: Gabapentin 400 MG CAPSULE PO SCH (10:33)
[2019-02-22] MEDS: Furosemide 40 MG TABLET PO SCH (10:33)
[2019-02-22] MEDS: Aspirin Enteric Coated 81 MG Tablet PO SCH (10:33)
[2019-02-22] MEDS: *HR* Digoxin 0.125 MG TABLET PO SCH (10:33)
[2019-02-22] MEDS: Insulin LISPRO 300 UNITS/3 ML VIAL SQ SCH ×2 (10:34→12:44)
[2019-02-22 11:19] VITALS: BP 134/67
--- NOTE | 2019-02-22 12:56 | Discharge Summary ---
- NOTES TO OUTPATIENT PROVIDER Notes to Outpatient Provider: Patient will need to follow up with PCP and cardiology. No started on antibiotics for now. Patient wish to obtain second opinion from vascular surgery as she was not offer any surgery inpatient due to cardiac risk factors. She will need adjustment of her insulin regimen. Orders not resulted at time of discharge: Pending orders 02/20/19 10:36 Culture,Blood [BC] Stat Date of Encounter: 02/22/19 Time of Encounter: 12:54 - Discharge Diagnosis (1) Hypoglycemia Priority: Secondary Status: Acute (2) Pain in pacemaker pocket Priority: Primary Status: Acute (3) CAD (coronary artery disease) Priority: Secondary Status: Chronic Qualifiers: Coronary Disease-Associated Artery/Lesion type: [place] artery [place] vs. transplanted heart: [place] heart Associated angina: without angina Qualified Code(s): I25.10 - Atherosclerotic heart disease of [place] coronary artery without angina pectoris (4) HTN (hypertension) Priority: Secondary Status: Acute Qualifiers: Hypertension type: essential hypertension Qualified Code(s): I10 - Essential (primary) hypertension (5) Diabetes Priority: Secondary Status: Chronic Qualifiers: Diabetes mellitus type: type 2 Diabetes mellitus exterminator helper termite insulin use: with fpc use Diabetes mellitus complication status: with kidney complications Diabetes mellitus complication detail: with chronic kidney disease Chronic kidney disease stage: stage 3 (moderate) Qualified Code(s): E11.22 - Type 2 diabetes mellitus with diabetic chronic kidney disease; N18.3 - Chronic kidney disease, stage 3 (moderate); Z79.4 - custodial (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 (6) PVD (peripheral vascular disease) Priority: Primary Status: Chronic (7) CKD (chronic kidney disease) stage 3, GFR 30-59 ml/min Priority: Secondary Status: Acute (8) History of CHF (congestive heart failure) Priority: Secondary Status: Acute Hospital course: Ms. Tom is a 88 year old female with past medical history of COPD, CAD, diabetes, hypertension, peripheral artery disease, was admitted for hypoglycemia as well as suspicion of infection of recently replaced pacemaker. Patient was not started on any antibiotics and cardiology consult was obtained. Patient also complaining of significant left lower extremity pain, and given history of PVD vascular consult was obtained. Patient's renal function remains stable. Patient was kept on insulin to monitor her insulin need. Patient pain was thought to be neurogenic and not vascular in origin and given cardiopulmonary restriction no intervention was recommended. Patient's family somewhat surprised by this and wanted to have second opinion. Patient at no risk of limb threatening acutely and would recommended outpatient follow-up. Patient was seen by cardiology who interrogated ICD was checked okay. CT chest showed small amount of fluid and air bubbles along the superior margin. Infectious disease consult was obtained who did not recommend any antibiotics. Patient white count remained normal, she did not have any fevers or other systemic signs of infection. She was seen by physical therapy who did not recommend any inpatient rehabilitation. Patient otherwise stable to be discharged home to follow with PCP and cardiology. Discussed signs of infection which should prompt her to follow-up earlier. She did mention she her appetite was low which could have led to hypoglycemia while taking insulin. I asked to decrease her insulin dose and monitor blood sugar at home. Her A1c is 7.4. She will need to follow with PCP for further adjustment of insulin regimen. Discharge discussed with: patient, nurse, automotive service consultant - Time Spent with Patient Total time spent providing and/or coordinating discharge services: Time spent: Greater than 30 minutes (35) - Discharge Medications Prescriptions: Continued Carvedilol [Coreg] 6.25 mg PO BIDWM Aspirin [Lo-Dose Aspirin EC] 81 mg PO DAILY amLODIPine [Norvasc] 5 mg PO DAILY [place]-3/Dha/Epa/Fish Oil [Fish Oil 1,000 mg Softgel] 1 each PO BID Gabapentin [Neurontin] 800 mg PO BID Digoxin [Lanoxin] 0.125 mg PO DAILY Clopidogrel [Plavix] 75 mg PO DAILY Isosorbide MONOnitrate (24 HR) [Imdur] 30 mg PO DAILY Furosemide [Lasix] 20 mg PO DAILY Levothyroxine Sodium [Levoxyl] 75 mcg PO QAM Lisinopril [Zestril] 2.5 mg PO DAILY Pravastatin Sodium [Pravachol] 40 mg PO DAILY Vitamin B Complex/Folic Acid [B-Complex Tablet] 1 tab PO DAILY Ascorbate Calcium [Vitamin C] 500 mg PO DAILY Pantoprazole Sodium [Protonix] 40 mg PO DAILY Multivit-Min/FA/Lycopen/Lutein [Centrum Silver Tablet] 1 tab PO DAILY LORazepam [Ativan] 0.5 mg PO HS PRN PRN Reason: Sleep Garlic 1 mg PO DAILY Changed Insulin Lispro Protamin/Lispro [Humalog Mix 75-25 Kwikpen] 20 unit SQ QAM #0 Insulin Lispro Protamin/Lispro [Humalog Mix 75-25 Kwikpen] 20 unit SQ QPM #0 Discontinued Insulin Lispro Protamin/Lispro [Humalog Mix 75-25 Kwikpen] 55 unit SQ QAM Insulin Lispro Protamin/Lispro [Humalog Mix 75-25 Kwikpen] 45 unit SQ QPM Home Medications: Aspirin [Lo-Dose Aspirin EC] 81 mg PO DAILY 02/10/19 [History] Carvedilol [Coreg] 6.25 mg PO BIDWM 02/10/19 [History] Clopidogrel [Plavix] 75 mg PO DAILY 02/10/19 [History] Digoxin [Lanoxin] 0.125 mg PO DAILY 02/10/19 [History] Furosemide [Lasix] 20 mg PO DAILY 02/10/19 [History] Gabapentin [Neurontin] 800 mg PO BID 02/10/19 [History] Isosorbide MONOnitrate (24 HR) [Imdur] 30 mg PO DAILY 02/10/19 [History] [place]-3/Dha/Epa/Fish Oil [Fish Oil 1,000 mg Softgel] 1 each PO BID 02/10/19 [History] amLODIPine [Norvasc] 5 mg PO DAILY 02/10/19 [History] Ascorbate Calcium [Vitamin C] 500 mg PO DAILY 02/21/19 [History] Garlic 1 mg PO DAILY 02/21/19 [History] LORazepam [Ativan] 0.5 mg PO HS PRN 02/21/19 [History] Levothyroxine Sodium [Levoxyl] 75 mcg PO QAM 02/21/19 [History] Lisinopril [Zestril] 2.5 mg PO DAILY 02/21/19 [History] Multivit-Min/FA/Lycopen/Lutein [Centrum Silver Tablet] 1 tab PO DAILY 02/21/19 [History] Pantoprazole Sodium [Protonix] 40 mg PO DAILY 02/21/19 [History] Pravastatin Sodium [Pravachol] 40 mg PO DAILY 02/21/19 [History] Vitamin B Complex/Folic Acid [B-Complex Tablet] 1 tab PO DAILY 02/21/19 [History] Insulin Lispro Protamin/Lispro [Humalog Mix 75-25 Kwikpen] 20 unit SQ QAM #0 02/22/19 [Rx] Insulin Lispro Protamin/Lispro [Humalog Mix 75-25 Kwikpen] 20 unit SQ QPM #0 02/22/19 [Rx] Allergies/Adverse Reactions: Allergy/AdvReac Type Severity Reaction Status Date / Time atorvastatin [From Lipitor] Allergy Swelling Verified 02/20/19 10:03 of Lip/Tongue/Throat Sulfa (Sulfonamide Allergy Hives Verified 02/10/19 13:09 Antibiotics) Date of admission: 02/20/19 14:29 Primary care physician: John Powell DO Consults: 02/20/19 15:04 Consult to Cardiology [CONS] Routine Comment: Consulting Provider: Cardiology [place] Reason for Consult: possible pacemaker infection Time Notified: 15:04 Call Completed: Yes 02/20/19 16:53 Consult to Vascular Surgery [CONS] Routine Consulting Provider: Vascular Surgery [place] Reason for Consult: hx of PVD - Left Ankle Brachial Index demonstrates severely occlusive disease. Having pain Time Notified: 17:00 Call Completed: Yes 02/20/19 17:04 Consult to Nutrition [CONS] Routine Comment: Consulting Provider: NUTRITION Reason for Dietary Consult: MST Score 02/21/19 11:00 Consult to Infectious Diseases [CONS] Routine Consulting Provider: Infectious Disease [place] Reason for Consult: pacemaker pocket infection Call Completed: Yes 02/22/19 06:31 Consult to Physical Therapy [CONS] Routine Comment: Evaluate, develop and implement POC Reason for Consult: improve mobility, discharge planning Does patient have active BEDREST order?: No Is patient medically & hemodynamically stable?: Yes 02/22/19 06:32 Consult to Occupational Therapy [CONS] Routine Comment: Evaluate, develop and implement POC Reason for Consult: improve mobility, discharge planning Does patient have active BEDREST order?: No Is patient medically & hemodynamically stable?: Yes Discharging clinician: Christopher Sommer - Constitutional Vitals: Temp Pulse Resp BP Pulse Ox 98.8 F 59 16 134/67 93 02/22/19 11:18 02/22/19 11:18 02/22/19 11:18 02/22/19 11:18 02/22/19 11:18 Exam: General: In no acute distress. Respiratory exam: CTAB. no accessory muscle use, rales, rhonchi, wheezes Cardiovascular exam: RRR, +S1, +S2. no murmur, gallop, rubs. Lt chest pacemaker with minial swelling and tenderness. Incision clean and dry without signs of infection GI/Abdominal exam: Non-tender, Non-distended, normal bowel sounds, soft, no peritoneal signs. Extremities exam: no pedal edema, no calf tenderness. Difficult to palpate pulse on Lt DP, PT feeble, warm feet, pulse present on Rt DP. Neurological exam: CN II-XII intact, AO X3, no focal deficits. Skin exam: No skin rash - Patient Status Disposition: Home, Self-Care Condition: Good - Discharge Instructions Follow Up With: John Powell DO [Primary Care Provider] - Rogelio Yin MD [Partnered Physician] - - Diet and Activity Activity: increase activity as tolerated
== END 2019-02-22 13:11 | disposition home or self-care (01) ==
LOC: EMEROOARM 09:53 → 2ANU 09:53 → SUATTDRO 14:29 → 2ANU 16:07
PROVIDERS: ADMIT Internal Medicine Nephrology; ATTEND Internal Medicine